=== PATIENT | female | born 1950 | race Caucasian/White ===

== ENCOUNTER 2024-05-16 14:22 | Outpatient (RCR) | payer MEDICARE, SELFPAY | END 2024-09-27 19:00 | disposition home or self-care (01) | LOC: ST 14:22 | PROVIDERS: PCP Physician Assistant Medical; Visit Provider Physician Assistant Medical | DX: R41.3 Other amnesia (principal); R47.89 Other speech disturbances | CPT/HCPCS: 92507; 92523 ==

== ENCOUNTER 2024-09-19 10:01 | Outpatient (RCR) | payer MEDICARE, SELFPAY | END 2024-09-27 19:00 | disposition home or self-care (01) | LOC: PT 10:01 | PROVIDERS: PCP Physician Assistant Medical; Visit Provider Family Medicine | DX: M54.6 Pain in thoracic spine (principal); M54.59 Other low back pain; M54.2 Cervicalgia; R51.9 Headache, unspecified | CPT/HCPCS: 20561; 97140; 97161 ==

== ENCOUNTER 2024-09-28 10:49 | Outpatient (RCR) | payer MEDICARE, SELFPAY | END 2025-01-20 12:22 | disposition home or self-care (01) | LOC: ST 10:49 | PROVIDERS: PCP Physician Assistant Medical; Visit Provider Physician Assistant Medical | DX: R41.3 Other amnesia (principal); R47.89 Other speech disturbances; I69.320 Aphasia following cerebral infarction; I69.311 Memory deficit following cerebral infarction | CPT/HCPCS: 92507 ==

== ENCOUNTER 2024-09-28 10:52 | Outpatient (RCR) | payer MEDICARE, SELFPAY | END 2024-11-18 08:54 | disposition home or self-care (01) | LOC: PT 10:52 | PROVIDERS: PCP Physician Assistant Medical; Visit Provider Family Medicine | DX: M54.59 Other low back pain (principal); M54.2 Cervicalgia; R51.9 Headache, unspecified | CPT/HCPCS: 20561; 97035; 97140 ==

== ENCOUNTER 2024-12-23 10:28 | Outpatient (RCR) | payer MEDICARE, SELFPAY | END 2025-04-25 09:06 | disposition home or self-care (01) | LOC: OT 10:28 | PROVIDERS: PCP Family Medicine; Visit Provider Internal Medicine | DX: G43.109 Migraine with aura, not intractable, without status migrainosus (principal) | CPT/HCPCS: 97140; 97167 ==